=== PATIENT | female | born 1950 | race Asian ===

== ENCOUNTER → 2016-11-02 | Outpatient (CLI) | payer BC ==
[~2016-11-02] MED LIST: ADVAIR 250/28 DISKU1 IH; ASPIRIN E.C. 8181 MG PO; ATENOLOL100 MG PO; CARDIZEM LA240 MG PO; COZAAR100 MG PO; EVISTA60 MG PO; HYZAAR 25 MG-101 TAB PO; PRILOSEC 20MG20 MG PO; SINGULAIR10 MG PO; TENORMIN 2525 MG/TAB PO; ZOCOR40 MG PO
== END ==
LOC: MC.RAD 09:40
DX: Z12.31 Encounter for screening mammogram for malignant neoplasm of breast (principal)

== ENCOUNTER → 2017-12-06 | Outpatient (CLI) | payer BC | LOC: MC.RAD 07:45 | DX: Z12.31 Encounter for screening mammogram for malignant neoplasm of breast (principal) ==

== ENCOUNTER → 2017-12-20 | Outpatient (CLI) | payer BC | LOC: COL.RAD 09:35 | DX: R76.8 Other specified abnormal immunological findings in serum (principal) ==

== ENCOUNTER → 2018-10-08 | Outpatient (CLI) | payer BC | LOC: COL.RAD 10:23 | DX: M05.731 Rheumatoid arthritis with rheumatoid factor of right wrist without organ or systems involvement (principal); I10 Essential (primary) hypertension ==

== ENCOUNTER → 2018-12-25 | Outpatient (CLI) | payer BC | LOC: MC.RAD 07:00 | DX: Z12.31 Encounter for screening mammogram for malignant neoplasm of breast (principal) ==

== ENCOUNTER → 2020-03-21 | Outpatient (CLI) | payer BC | LOC: MC.RAD 10:14 | DX: N60.01 Solitary cyst of right breast (principal) ==